=== PATIENT | male | born 1970 | race African-American/Black ===

== ENCOUNTER 2020-10-30 15:43 | Emergency (ER) | payer MEDICARE, BC ==
[~2020-10-30] VITALS: Ht 203.2 cm; Wt 200.0 kg
[2020-10-30 15:51] VITALS: BP 132/106
--- NOTE | 2020-10-30 15:52 | PHYS DOC ---
Adult General Chief Complaint Chief Complaint: KNEE INJURY HPI HPI Patient is a 50-year-old male who presented to the emergency department stating that he woke up morning with left knee pain. Patient denies any injury to his knee, patient states he has had a long history of knee problems since he was approximately 15 years old. Patient states that he should be getting steroid injections into his knees but is insurance currently will not pay for them. Patient states he wears copper compression garments on both his knees along with custom knee braces. Patient reports his pain at a 10/10 on a 1-10 pain scale. Patient states that he has had no pain relief with his normal pain medicines he takes at home which include Naprosyn and Zanaflex. Patient reports his knee pain specifically from the bottom part of his center kneecap radiating down approximately 3 to 4 inches. Patient states he ambulates with a cane all the time, patient states that he takes Flomax and is unable to rest and elevate his leg because he is constantly getting up to urinate related to the side effects of his flow max medication. Patient denies any other physical symptoms or physical illnesses. Patient states no one else in his home is experiencing the same knee pains as he. Patient denies any numbness or tingling to his lower extremities, patient denies any swelling to his lower extremities, patient denies any edema to his lower extremities. Review of Systems Review of Systems 14 body systems of review of systems have been reviewed. See HPI for pertinent positives and negative responses, otherwise all other systems are negative, nonpertinent or noncontributory. Physical Exam Physical Exam Constitutional: Well developed, well nourished, no acute distress, non-toxic appearance. HENT: Normocephalic, atraumatic, bilateral external ears normal, oropharynx moist, no oral exudates, nose normal. Eyes: PERRLA, EOMI, conjunctiva normal, no discharge. Neck: Normal range of motion, no tenderness, supple, no stridor. Cardiovascular:Heart rate regular rhythm, no murmur Lungs & Thorax: Bilateral breath sounds clear to auscultation Abdomen: Bowel sounds normal, soft, no tenderness, no masses, no pulsatile masses. Skin: Warm, dry, no erythema, no rash. Back: No tenderness, no CVA tenderness. Extremities: No tenderness, no cyanosis, no clubbing, ROM intact, no edema. Left knee tender to palpation along inferior patellar tendon, no erythema noted no edema noted, no deformity, distal cap refill less than 2 seconds, 2+ dorsalis pedis and posterior tibial pulses, neurovascular intact. Limited R0M related to pain and history of chronic arthritis of the knee. Neurologic: Alert and oriented X 3, normal motor function, normal sensory function, no focal deficits noted. Psychologic: Affect normal, judgement normal, mood normal. EKG EKG [] Radiology/Procedures Radiology/Procedures STATUS: REG ER ORD. PHYSICIAN: STIVEN MAO APRN REASON: KNEE PAIN LEFT PROCEDURE: KNEE LEFT 4V 4 view left knee HISTORY: Knee pain AP lateral oblique and sunrise views left knee The visualized osseous structures appear normal. IMPRESSION: No acute findings. Electronically signed by: Anju Hernandez III, MD (10/30/2020 4:29 PM) [facility] DICTATED AND SIGNED BY: ANJU HERNANDEZ III, MD DATE: 10/30/20 5492 CC: STIVEN MAO APRN; [facility]; SARAH OCNSTANTINO ~MTH0 0 Heart Score Risk Factors: Risk Factors: DM, Current or recent (<one month) smoker, HTN, HLP, family history of CAD, obesity. Risk Scores: Risk Factors: DM, Current or recent (<one month) smoker, HTN, HLP, family history of CAD, obesity. Course & Med Decision Making Course & Med Decision Making Pertinent Labs and Imaging studies reviewed. (See chart for details) 50 yo male, Vital signs reviewed, physical exam concerning for left knee tendonitis, related to Hx of chronic arthritis, an x-ray of the left knee was ordered, 60 tordol IM and 2 PO norco 5/325mg. X-ray imaging negative for acute Fx per house radiologist interpretation. Re- exam of patient, pt reports some relief of pain, discussed Dx of tendonitis, will give 80mg Depo-Medrol IM in ER prior to D/C, patient gave verbal understanding of discharge home instructions, follow-up with primary care physician tomorrow or the next day, return to emergency department concerns, patient had no further questions or concerns, patient discharged home without incident. Dx most likely tendinitis of the left knee, unlikely acute occult fracture, compartment syndrome, infectious process. Dragon Disclaimer Dragon Disclaimer This electronic medical record was generated, in whole or in part, using a voice recognition dictation system. Departure Departure: Impression: Primary Impression: Left knee tendonitis Additional Impression: Left anterior knee pain Disposition: 01 DC HOME SELF CARE/HOMELESS Condition: IMPROVED Referrals: SARAH CONSTANTINO (PCP) Patient Instructions: Knee Pain Additional Instructions: Please use Tylenol for pain at home, please see your Dr. Constantino tomorrow or the next day related to your ongoing knee pains, continue to use your compression garments on your knees. Return to the emergency department for worsening symptoms or other concerns. Problem Qualifiers STIVEN MAO BUSINESS QUALITY ASSURANCE ANALYST Oct 30, 2020 15:52
[2020-10-30] MEDS ORDERED: KETOROLAC 60 MG/2 ML VIAL. IM ONE (16:00)
[2020-10-30] MEDS ORDERED: HYDROcodone/APAP 5/325MG 1 TAB TABLET PO ONE (16:00)
--- NOTE | 2020-10-30 16:32 | RAD ---
4 view left knee HISTORY: Knee pain AP lateral oblique and sunrise views left knee The visualized osseous structures appear normal. IMPRESSION: No acute findings. Electronically signed by: Tigre Pitts III, MD (10/30/2020 4:29 PM) [facility]
[2020-10-30] MEDS ORDERED: methylPREDNISolone ACETATE 80 MG/ML VIAL. IM ONE (16:45)
== END 2020-10-30 17:12 | disposition home or self-care (01) ==
LOC: ER 15:43
DX: M77.8 Other enthesopathies, not elsewhere classified (principal); M25.562 Pain in left knee
CPT/HCPCS: 73564; 96372; 99284; J1040; J1885